=== PATIENT | male | born 1965 | race Caucasian/White ===

== ENCOUNTER → 2017-05-04 | Outpatient (CLI) | payer OTHER ==
[~2017-05-04] MED LIST: ALLO-2 PO; AMLO-96 PO; ASPI81TA94 PO; CLON0.1T14 PO; CLON1PAT20 TD; LISI-355 PO; METF-410 PO; MULT-1372 PO; OMEG500C5 PO; VAR05PT PO; [UNRECOGNIZED DRUG - CODE] PO
== END ==
LOC: RESP 15:42
PROVIDERS: ATTEND Family Medicine
DX: R09.02 Hypoxemia (principal); G47.33 Obstructive sleep apnea (adult) (pediatric)

== ENCOUNTER → 2017-07-14 | Outpatient (CLI) | payer OTHER ==
[~2017-07-14] MED LIST changes: -METF-410 PO; +METF-411 PO
== END ==
LOC: RESP 19:57
PROVIDERS: ATTEND Family Medicine
DX: G47.33 Obstructive sleep apnea (adult) (pediatric) (principal); G47.61 Periodic limb movement disorder